=== PATIENT | female | born 1965 | race Caucasian/White ===

== ENCOUNTER 2020-11-23 09:50 | Emergency (ER) | payer OTHER ==
[~2020-11-23] VITALS: Ht 160 cm; Wt 78.5 kg
[2020-11-23] MEDS ORDERED: LEVSIN/SL0.125 MG SL (16:23)
[2020-11-23] MEDS ORDERED: INTESTINEX680 M2 PO (16:23)
[2020-11-23] MEDS ORDERED: PEPCID AC20 MG PO (16:23)
[2020-11-23] MEDS ORDERED: DIPHENOXYLATE-1 EACH PO (16:23)
== END 2020-11-23 17:39 | disposition home or self-care (01) ==
LOC: ER 09:50
DX: K52.89 Other specified noninfective gastroenteritis and colitis (principal)